=== PATIENT | female | born 1980 | race Caucasian/White ===

== ENCOUNTER 2022-04-23 04:30 | Emergency (ER) | payer BC, SELFPAY ==
--- NOTE | 2022-04-23 04:33 | ED.GENADULT ---
HPI - General Adult General Chief complaint: Neck Pain/Injury Stated complaint: Neck pain Time Seen by Provider: 04/23/22 04:33 History of Present Illness HPI narrative: 41-year-old woman with history of intermittent neck pain currently visiting from [place] for a week presents complaining of severe neck pain that is been bothering her for the last 48 hours. She woke with increasing pain in it has only gotten worse. She was seen in a walk-in clinic yesterday and given diazepam which has not been helpful. She describes muscle spasm down her left arm with acute radicular pain from the left side of her neck. There is no indication of red flags such as significant trauma, malignancy, IV drug use recent spinal instrumentation to suggest abscess. She has no skin changes or findings to suggest zoster. She has been using large doses of ibuprofen alternating with Tylenol with minimal results. She states that she has not slept in the last 48 hours and getting more frustrated. She believes that the next step is going to be an MRI. 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 At this point she is not having any fevers, cough, chills, vomiting, diarrhea, abdominal pain and not specifically complaining about headaches. Related Data Previous Rx's Medication Instructions Recorded dexamethasone 4 mg tablet 10 mg PO DAILY #5 tabs 04/23/22 oxycodone-acetaminophen 5 mg-300 1 tab PO Q8H PRN pain #10 tabs 04/23/22 mg tablet Allergies Allergy/AdvReac Type Severity Reaction Status Date / Time No Known Drug Allergies Allergy Verified 04/23/22 05:08 Review of Systems Review of Systems Narrative: Remainder of complete review of systems is otherwise unremarkable except for that included in the HPI. Patient History Social History Smoking Status: Never smoker Exam Initial Vital Signs Initial Vital Signs: General: Alert appropriate in no acute distress HEENT: Neck has no significant trapezius muscle spasm, no redness, swelling, warmth, skin rashes. She does have tenderness at approximately the C4-5 level of the of the transverse processes. She has no cervical adenopathy or throat pain. Respiratory: Able to speak in full sentences, no obvious respiratory distress Skin: No obvious rashes, warm and dry Neurologic: Grossly intact no obvious asymmetries or abnormalities Psych: appropriate insight and affect, cooperative Medical Decision Making [facility] Narrative Medical decision making narrative: 41-year-old woman with 48 hours of radicular neck pain difficulty sleeping. We discussed options including neck support with mild immobilization in the form of a soft collar. She was willing to give this a try. Will give her a brief course of Percocet recognizing that other than covering upper pain at this point I do not have a whole lot of other suggestions. She does have diazepam that has not been helpful. Will also recommend 3 days of dexamethasone. She states in the past that she has had significant difficulties with steroids in becoming overly stimulated. She describes a 20 day taper of prednisone is being the initial prescription that caused problems. Suggested a soft collar which she declined as she has a travel pillow that she would prefer to use. Explained to her some of the benefit of resting knee occipital process with slight flexion in terms of opening up some of the spaces posteriorly but she was not interested. She was reluctant to consider will Decadron given her previous adverse reaction with prednisone but was willing to give that a try. States that she does not like the feel of oxycodone but then have multiple questions on Percocet rather than just oxycodone. Explain to her that arm numb urgency room I do not have additional options for her she does need to follow-up with her primary care doctor. If this pain does continue she may benefit from some of the neuro modulating medications such as gabapentin Lyrica. She may benefit from MRI for better diagnosis and consideration of additional interventions such as epidural steroid injections or even possibly surgical intervention. At this point she does have radicular pain however she does have full range of motion in the arm and there is no indication for emergent MRI at this time. All of this is explained to her and I encouraged her to schedule appointment for her own doctor when she returns home within the next couple of days. She is safe for discharge. Discharge Plan Departure Patient Disposition: Home Clinical Impression: Cervical spine pain, Radicular pain in left arm Instructions: DI for Neck Pain Activity Restrictions/Additional Instructions: I am sorry that you are suffering so much with this acute neck pain. At this time there does not appear to be any clinical evidence of infection, epidural abscess, significant trauma or alternate reasons to justify emergency imaging. Typically immobilizing the cervical spine in a way that separates the vertebra from 1 another creating just a bit more space between the the bones where the nerves pass through can be helpful. Using 3 days of a potent steroid may also be helpful in reducing inflammation. A given you a dose of dexamethasone in the emergency department and would suggest an additional 10 mg on the 8th and the 9th respectively. You can use diazepam to help with sleep if you find that this is too stimulating. Using ice can be helpful but certainly isn't going to leave the all of the symptoms. In you do not need to use any ibuprofen why you were taking the dexamethasone, both are potent anti-inflammatories. When she were done with the dexamethasone, you may find that using 400 mg of ibuprofen (2 [id number] pills) and 1 Tylenol every 6 hours can be very helpful in controlling pain. With severe pain using 1 Percocet with the to ibuprofen can be helpful. You can use 1-2 Percocet every 8 hours with the dexamethasone over the next 2-3 days. Percocet is a narcotic, it can be addictive and should not be used for chronic pain but can occasionally be helpful for acute pain. Please do recognize that radicular, nerve pain, is very difficult to treat overall. I encourage you to schedule an appointment with your primary care doctor once you return to [place]. I hope you feel better Prescriptions: New oxycodone-acetaminophen 5-300 mg tablet 1 tab PO Q8H PRN (Reason: pain) Qty: 10 0RF dexamethasone 4 mg tablet 10 mg PO DAILY Qty: 5 0RF
[2022-04-23 04:35] VITALS: BP 120/67; PULSE 58; RESP 18; TEMP 35.7; O2SAT 100; BMI 23.0
[2022-04-23] MEDS: OXYCODONE/ACETAMINOPHEN 5/325 TABLET 1 TAB PO (05:17)
[2022-04-23] MEDS: dexAMETHasone 4 MG TABLET 8 MG PO (05:17)
--- NOTE | 2022-04-23 05:26 | PC.NURSE ---
She refused the soft cervical collar.
== END 2022-04-23 05:26 | disposition home or self-care (01) ==
PROVIDERS: Emergency Provider Emergency Medicine
DX: M54.2 Cervicalgia (principal); M79.2 Neuralgia and neuritis, unspecified
CPT/HCPCS: 99283